=== PATIENT | female | born 1970 | race Caucasian/White ===

== ENCOUNTER 2024-03-28 15:09 | Emergency (ER) | payer OTHER ==
[~2024-03-28] VITALS: Ht 157.5 cm; Wt 92.1 kg
--- NOTE | 2024-03-28 17:00 | DVH ---
EXAM: CT HEAD WITHOUT CONTRAST HISTORY: fall COMPARISON: None TECHNIQUE: Axial images of the head were obtained and reformatted in coronal and sagittal planes. All CT scans at this medical facility are performed using dose modulation techniques as appropriate t o a performed exam including the following: Automated exposure control was utilized; adjustment of th e MA and/or KV according to patient size; and use of iterative reconstruction technique. CT Dose: CTDI volume is 49 mGy. Dose-length product is 789 mGy*cm FINDINGS: There is no evidence of acute intracranial hemorrhage, mass, mass effect midline shift. There is no h ydrocephalus or extra-axial fluid collection. Drummond-white matter differentiation is maintained. There is mucosal thickening in the maxillary sinuses. The mastoid air cells are clear. The calvariu m is intact. There is soft tissue swelling with subcutaneous emphysema in the superior frontal scalp. IMPRESSION: 1. No acute intracranial process. HS:Y
--- NOTE | 2024-03-28 17:05 | DVH ---
CT CERVICAL SPINE Clinical History: fall Seizure with possible fall. Technique: Multiple contiguous axial images of the cervical spine. These images were reconstructed to generate c oronal and sagittal reformats. Radiation Dose Information: CT Dose: CTDI volume is 24 mGy. Dose-length product is 608 mGy*cm Comparison: None Findings: There is no evidence of an acute fracture or dislocation. The cervical vertebral body heights are leo ntained. The craniocervical articulation is appropriate. The dens is intact. Predental space is wit hin normal limits. There is no posttraumatic malalignment. There is no prevertebral soft tissue swel ling or edema. There is mild reversal of the cervical lordosis. There is moderate disc space narrowing at C5-C6 and C6-C7 with small anterior and posterior marginal osteophytes. There are disc osteophyte complexes at C5-C6 and C6-C7 resulting in mild spinal canal stenosis. Impression: 1. There is no acute osseous abnormality in the cervical spine. 2. Degenerative disc changes at the C5-C6 and C6-C7 levels as described above. HS:Y
[2024-03-28 17:42] VITALS: BP 138/67; PULSE 98; RESP 18; TEMP 98.3; O2SAT 98
[2024-03-28] MEDS ORDERED: CEPH500C PO (17:46)
[2024-03-28] MEDS ORDERED: HYDR-4902 PO (17:46)
--- NOTE | 2024-03-28 17:47 | ED.PDOC ---
HPI (NEURO) HPI Comments 54 year old with no pertinent MHx presents for open head injury x 1 day after falling from the 3rd step. Reports stairs were extremely narrow causing her to miss her step then hitting the frontal bone on concrete. Denies persistent nausea Denies vomiting Denies thunderclap headache Denies photophobia, phonophobia Denies head trauma around the time headache started Denies family history of brain issues persistent headaches Denies taking any blood thinner medication Denies vision/hearing changes Denies focal loss of strength/sensation or changes in speech Chief Complaint: Head Injury Time Seen by MD: 16:23 Primary Care Provider: BOUCHRA Reviewed Notes: Nurses Notes, Medications, Allergies Information Source: Patient Mode of Arrival: Ambulatory Family History Family History: Reviewed,noncontributory to illness All Other Systems: Reviewed and Negative (Per HPI) Physical Exam General Appearance: No Apparent Distress, Normal HEENT: Head (see image for detail note), Normal ENT Inspection, Pharynx Normal, TMs Normal Neck: Full Range of Motion, Non-Tender, Normal, Normal Inspection Respiratory: Chest Non-Tender, Lungs Clear, No Accessory Muscle Use, No Respiratory Distress, Normal Breath Sounds Cardiovascular: No Edema, No JVD, No Murmur, No Gallop, Normal Peripheral Pulses, Regular Rate/Rhythm Breast Exam: Deferred Gastrointestinal: No Organomegaly, Non Tender, No Pulsatile Mass, Normal Bowel Sounds, Soft Genitalia: Deferred Pelvic: Deferred Rectal: Deferred Extremities: No calf tenderness, Normal capillary refill, Normal inspection, Normal range of motion, Non-tender, No pedal edema Musculoskeletal : Apperance: Normal Neurologic: Alert, data storage specialist II-XII nml as Tested, No Motor Deficits, Normal Affect, Normal Mood, No Sensory Deficits Cerebellar Function: Normal Reflexes: Normal Skin: Dry, Normal Color, Warm Lymphatic: No Adenopathy Was a procedure done? Was a procedure done?: Yes Sedation Sedation?: No Laceration Repair : Location Frontal bone Length 5 Anesthetic: Lidocaine Laceration Repair Prep: Saline, by Irrigation, Manual Scrub Laceration Repair: [place] ([id number]) Informed consent obtained: Yes Risks, benefits, and alternati: Yes Images 1 - There is a linear 5 cm laceration. Hemostasis obtained. No foreign bodies appreciated. Tenderness to palpation. Differential Diagnosis (SZ) Headache: Closed Head Injury, Post-Traumatic X-Ray, Labs, Meds, VS Vital Signs Date Time Temp Pulse Resp B/P (MAP) Pulse Ox O2 Delivery O2 Flow Rate FiO2 03/28/24 17:42 98.3 98 17 138/67 (90) 98 98.3 03/28/24 17:42 98 18 98 Room Air 03/28/24 15:17 98.5 100 18 144/69 (94) 95 X-Ray, Labs, Meds, VS Comment The patient suffered a minor closed head injury. The following differential diagnoses were considered for this patient; subdural hematoma, subarachnoid hemorrhage, epidural hematoma, intraparenchymal bleed, herniation, skull fracture. The patient had a computed tomography of their head without any evidence of acute intracranial abnormality as per radiology. The patient is neurologically intact by exam and is able to ambulate without difficulty. A complete examination does not reveal any other related injury at this time. The patient is not currently utilizing any anticoagulants. The patient is advised to use tylenol as needed for pain. The patient is instructed to follow up their primary care physician as needed or return to ER if vomiting or worsening headache occurs. The patient was counseled in regards to the diagnosis and management of the condition and verbalized understanding of this. On reevaluation, patient had symptomatic improvement. Patient is stable for discharge at this time. External notes reviewed. Test results and diagnostic imaging interpreted. All diagnostic findings, discharge care, education and instructions provided Follow-up with PCP in 2 to 3 days Patient verbalized understanding and agreed to treatment plan Vital signs stable, afebrile, no acute distress noted Patient ambulatory with strong steady gait Advised to return precautions for any new or worsening symptoms, return to ER immediately for re-evaluation Patient is aware that the purpose of this visit was for an acute medical emergency requiring emergent stabilization. Chronic conditions, including malignancies have not been ruled out. Patient is instructed to follow up with PCP as directed and discharge instructions for continued care and workup. If unable to arrange follow-up, patient is to return to the emergency department for reassessment. Patient (parent or legal guardian if applicable) was given verbal and written discharge instructions and acknowledges understanding. Time of 1ST Reevaluation: 17:30 Reevaluation 1ST: Improved Patient Education/Counseling: Diagnosis, Treatment Family Education/Counseling: Diagnosis, Treatment Departure 1 Departure Time of Disposition: 17:43 Impression: Primary Impression: Laceration of head Qualified Codes: S01.01XA - Laceration without foreign body of scalp, initial encounter Additional Impression: Blunt head injury Qualified Codes: S09.8XXA - Other specified injuries of head, initial encounter Disposition: HOME / SELF CARE / HOMELESS Condition: Stable e-Prescriptions Hydrocodone-Acetaminophen (Hydrocodone Bitartrate/AC 5-325 mg) 1 Tab Tab 1 TAB PO Q8HP PRN for 2 Days, #6 TAB 0 Refills Prov: MICHAEL RAPP [employer] 03/28/24 Cephalexin Monohydrate (Cephalexin) 500 Mg Cap 1 CAP PO QID for 5 Days, #20 CAP 0 Refills Prov: MICHAEL RAPP [employer] 03/28/24 Critical Care Note Critical Care Time?: No Stability Stability form required: No Heart Score Heart Score: Heart Score Response (Comments) Value History N/A 0 EKG N/A 0 Age N/A 0 Risk Factors N/A 0 Troponin N/A 0 Total 0 MICHAEL RAPP [employer] Mar 28, 2024 17:47
== END 2024-03-28 17:56 | disposition home or self-care (01) ==
LOC: ER 15:09
DX: S01.81XA Laceration without foreign body of other part of head, initial encounter (principal); W10.8XXA Fall (on) (from) other stairs and steps, initial encounter; Y93.01 Activity, walking, marching and hiking; Y92.89 Other specified places as the place of occurrence of the external cause; Y99.8 Other external cause status
CPT/HCPCS: 12002; 70450; 72125